=== PATIENT | male | born 1965 | race Caucasian/White ===

== ENCOUNTER 2024-01-16 15:26 | Emergency (ER) | payer OTHER, SELFPAY ==
--- NOTE | 2024-01-16 15:57 | ED_ITS ---
HPI - Extremity Injury (Upper) General Chief Complaint: Wound/Laceration Stated Complaint: left hand pointer finger wound Time Seen by Provider: 01/16/24 17:27 Source: patient Mode of arrival: ambulatory Limitations: no limitations History of Present Illness ED Provider: Moise Rodrigues PA-C HPI narrative: 58-year-old male presents to the ER for evaluation of a laceration to his left index finger that occurred a couple hours ago at home. Patient accidentally sliced his finger on a new, sharp drill bit. He sustained a 1.5 cm laceration to the back of his left index finger between his MCP and his PIP. There was significant bleeding so he came to the ER for evaluation to see if he needed stitches. He is able to fully flex and extend the finger. He denies any numbness or tingling. He is not on anticoagulation. complaint: injury to: finger Onset (ago): day(s) Other injuries: none Handedness: right Place: home Severity: mild Relieving factors: none Exacerbating factors: none Associated symptoms: denies other symptoms Treatments prior to arrival: bandage Related Data Allergies Allergy/AdvReac Type Severity Reaction Status Date / Time No Known Allergies Allergy Verified 01/16/24 16:03 Review of Systems Review of Systems: Yes all other systems are reviewed and are negative PMFSH Social History Social History Advance Directives: No Advance Directives Information Provided: No Do you have a plan to hurt others: No Plan Physical Exam Vital Signs: Vital Signs: Last Vital Signs Temp 98.0 F 01/16/24 15:58 Pulse 74 01/16/24 15:58 Resp 18 01/16/24 15:58 BP 145/99 H 01/16/24 15:58 Pulse Ox 95 01/16/24 15:58 O2 Del Method Room Air 01/16/24 15:58 BMI result Body Mass Index 29.8 Appearance: Alert. Oriented X3. No acute distress. HEENT: normal inspection CVS: Normal heart rate and rhythm. Pulses normal. Respiratory: No respiratory distress. Skin: Skin warm and dry. Normal skin color. Normal skin turgor. No rashes. Extremities: Dorsal aspect of the left index finger with a 1.5 cm linear laceration with active oozing, located between the MCP and PIP. Exposed adipose tissue, visible tendon that is intact. No foreign body. Full extension and flex the of the finger, neurovascularly intact distally. Neuro: Oriented X 3. No motor deficit. No sensory deficit. Course Course Course Narrative: This is a rapid medical exam. Deferred additional HPI, ROS, PE to primary provider. 58 yo male with DM, HTN, HLD, right hand dominant here with complaints of wound to left index finger wound from a drill bit. Tetanus UTD. Declined x-ray in triage. Laceration over dorsal aspect of the 1st index finger. Will need closure of wound with sutures. WINSTON Cabral APRN Medical Decision Making Medical Decision Making MDM Narrative: 58-year-old male presenting to the ER for evaluation of a laceration to his left index finger sustained on sharp, metal drill bit. Actively using on arrival. Tetanus shot is up-to-date he thinks. Declining tetanus shot today. Wound was irrigated with copious amounts of saline and deep structures are intact. He is neurovascularly intact, and tendons are intact. Declined x-ray. No visible bone on exam. Four sutures were used to close the wound with adequate wound margin closure. Discussed wound care and return precautions. Stable for discharge home Differential Diagnosis Differential Diagnoses: The differential diagnosis associated with the presentation includes Deep laceration, superficial laceration, tendon laceration, open fracture Tests considered The following testing was considered but not selected: X-ray considered however patient declined Prescription Management I considered prescription management with: Pain Medication and Antibiotic Procedures Laceration Laceration 1: Site: hand Side (If applicable): left Size (cm): 1.5 Description: linear Depth: simple, single layer Local Anesthetic: lidocaine 1% Amount of anesthesia used (mL): 4 Pre-repair: wound explored, irrigated extensively and deep structures intact Skin layer closed with: nylon Size (cm): 4-0 Number of sutures: 4 Technique: simple, interrupted Critical Care Time Critical Care Time Critical Care Time: No Discharge Plan Discharge Clinical Impression: Finger laceration Qualifiers: Encounter type: initial encounter Finger: index finger Damage to nail status: without damage Foreign body presence: without foreign body Laterality: left Qualified Code(s): S61.211A - Laceration without foreign body of left index finger without damage to nail, initial encounter Patient Disposition: Home, Self-Care Instructions: Finger Laceration (ED) Additional Instructions: 6 stitches were used to close your wound today You will need your stitches out in 7-10 days. See you doctor for this or come back to the ER and we will remove them. Do not get wet for 24 hours, after that you can briefly wash with soap and water then pat dry. Keep wound clean and covered. Allow open to air a few hours per day. Do not submerge in water, no swimming. If you develop signs of infection including increased pain, swelling, redness or drainage of pus come back to the ER for further evaluation. Print Language: Romanian
[2024-01-16 15:58] VITALS: BP 145/99; PULSE 74; RESP 18; TEMP 36.7; O2SAT 95; BMI 29.8
[2024-01-16 18:27] VITALS: BP 145/99; PULSE 74; RESP 18; TEMP 36.7; O2SAT 95
== END 2024-01-16 18:29 | disposition home or self-care (01) ==
PROVIDERS: Emergency Provider Emergency Medicine Emergency Medical Services; PCP Internal Medicine
DX: S61.211A Laceration without foreign body of left index finger without damage to nail, initial encounter (principal); W29.8XXA Contact with other powered hand tools and household machinery, initial encounter; Y93.9 Activity, unspecified; Y92.9 Unspecified place or not applicable; Y99.9 Unspecified external cause status
CPT/HCPCS: 12001; 99282; 99284